=== PATIENT | male | born 1950 | race African-American/Black ===

== ENCOUNTER 2016-09-02 00:09 | Emergency (ER) | payer SELFPAY ==
--- NOTE | 2016-09-02 04:43 | ER Document Report ---
HPI - HPI Patient complains to provider of: numbness Pain Level: Denies Context: Patient is a 65 year old male that comes to the ED for chief complaint of having to strain on the toilet, he states he is staying longer on the toilet and he noticed that his left leg was going numb with the time he spent on the toilet. He states that since he gets off the toilethe walks off the numbness and he returns to normal functioning. He denies abdominal pain. He denies fever. He denies nausea or vomiting. He denies any daily medications or no medical history. He denies any surgeries. He does not have a primary care provider. He is new to the area but he states he is interested in getting a primary care provider locally. Past Medical History - General Information source: Patient - Social History Smoking Status: Never Smoker Drug Abuse: None Lives with: Family Family History: Reviewed & Not Pertinent - Medical History Medical History: Negative Renal/ Medical History: Denies: Hx Peritoneal Dialysis Surgical Hx: Negative Vertical Provider Document - CONSTITUTIONAL General Appearance: WD/WN, No Apparent Distress - INFECTION CONTROL TRAVEL OUTSIDE OF THE [place] IN LAST 30 DAYS: No - HEENT HEENT: Atraumatic, Normal ENT Exam, Normocephalic - NECK Neck: Normal Inspection - RESPIRATORY Respiratory: Breath Sounds Normal, No Respiratory Distress O2 Sat by Pulse Oximetry: 96 - CARDIOVASCULAR Cardiovascular: Regular Rate, Regular Rhythm - GI/ABDOMEN Gastrointestinal: Abdomen Non-Tender - Abdomen is nontender, however there is an umbilical hernia noted on examination, I was able to reduce this without any difficulty on examination. - BACK Back: Normal Inspection - Normal midline exam, no saddle anesthesia, normal upper and lower extremity strength and range of motion, normal distal neurovascular exam - MUSCULOSKELETAL/EXTREMETIES Musculoskeletal/Extremeties: MAEW, FROM, Non-Tender - NEURO Level of Consciousness: Awake, Alert Course - Re-evaluation Re-evalutation: Patient was noted to have an umbilical hernia, this is easily reduced. Patient currently asymptomatic. No concerning symptoms reported other than straining on the toilet, patient will be provided with a stool softener, referral to both primary care and surgery, discussed return precautions in detail, patient states gratefulness for care and understanding. - Vital Signs Vital signs: Temp Pulse Resp BP Pulse Ox 98.4 F 82 18 166/85 H 96 09/02/16 00:20 09/02/16 00:20 09/02/16 00:20 09/02/16 00:20 09/02/16 00:20 Discharge - Discharge Clinical Impression: Straining during bowel movements Abdominal hernia Qualifiers: Hernia type: umbilical Obstruction and gangrene presence: without obstruction or gangrene Qualified Code(s): K42.9 - Umbilical hernia without obstruction or gangrene Condition: Stable Disposition: HOME, SELF-CARE Additional Instructions: Your examination is consistent with an umbilical hernia. Please follow-up with both primary care and the surgical clinic referrals, this will likely need to be repaired. Take the stool softener to avoid straining during bowel movement. Take for the next several days, increase fiber in your diet. Return to emergency department for any concerning or worsening symptoms including abdominal pain, vomiting, or any other concerning symptoms. Prescriptions: Docusate Sodium [Colace 100 mg Capsule] 100 mg PO DAILY #30 capsule Forms: Elevated Blood Pressure Referrals: STEVEN HYDE MD [ACTIVE STAFF] - Follow up as needed [facility] [Provider Group] - Follow up in 3-5 days MING GOEL MD [ACTIVE STAFF] - Follow up in 3-5 days
[2016-09-02 05:02] VITALS: BP 155/95
== END 2016-09-02 04:59 | disposition home or self-care (01) ==
LOC: ER 00:09
DX: R19.4 Change in bowel habit (principal); K42.9 Umbilical hernia without obstruction or gangrene; R20.0 Anesthesia of skin
CPT/HCPCS: 99283

== ENCOUNTER 2018-03-21 10:32 | Emergency (ER) | payer BC, MEDICARE ==
[2018-03-21] MEDS ORDERED: NORMAL SALINE 1000 ML 1,000 ML IV ONE (10:51)
[2018-03-21] MEDS ORDERED: ACETAMINOPHEN 325 MG TABLET PO ONE (10:51)
[2018-03-21] MEDS ORDERED: CEFTRIAXONE 1 GM/D5W RTU 1 GM/50 ML RTUPB IV ONE (10:51)
--- NOTE | 2018-03-21 10:53 | ER Document Report ---
ED Medical Screen (RME) - General Chief Complaint: Pain All Over Stated Complaint: BODY ACHES Time Seen by Provider: 03/21/18 10:45 TRAVEL OUTSIDE OF THE [place] IN LAST 30 DAYS: No - Related Data Allergies/Adverse Reactions: Penicillins Allergy (Verified 03/21/18 10:32) Past Medical History - Social History Frequency of alcohol use: Rare Drug Abuse: None Renal/ Medical History: Denies: Hx Peritoneal Dialysis GI Medical History: Reports: Hx Gastroesophageal Reflux Disease Physical Exam - Vital signs Vitals: Temp Pulse Resp BP Pulse Ox 102.8 F H 125 H 26 H 148/78 H 95 03/21/18 10:39 03/21/18 10:39 03/21/18 10:39 03/21/18 10:39 03/21/18 10:39 Course - Re-evaluation Re-evalutation: 03/21/18 10:53 67-year-old man with no known medical problems that presents for evaluation of fever, tachycardia, cough, and weakness. I have seen and evaluated this patient in rapid medical screening exam, there will require reexamination and further assessment with possible diagnostics and disposition determination by secondary provider. - Vital Signs Vital signs: Temp Pulse Resp BP Pulse Ox 102.8 F H 125 H 26 H 148/78 H 95 03/21/18 10:39 03/21/18 10:39 03/21/18 10:39 03/21/18 10:39 03/21/18 10:39
--- NOTE | 2018-03-21 11:00 | ER Document Report ---
ED General - General Chief Complaint: Pain All Over Stated Complaint: BODY ACHES Time Seen by Provider: 03/21/18 10:45 Notes: Patient is a 67-year-old male that presents to the emergency department for chief complaint of cough and shortness of breath. Reports that his symptoms started yesterday, with cough nonproductive, he states his daughter was diagnosed with influenza in [place], and he started having similar symptoms of generalized body aches and weakness, along with fevers and chills. He denies having any associated chest pain, nausea, vomiting or abdominal pain. He describes his body pain is aches all over, not focal. Denies having any neck stiffness, or back pain or confusion. Past Medical History: Hypertension Past Surgical History: Denies surgical history Social History: Denies tobacco, alcohol or drug use. Family History: Reviewed and noncontributory for presenting illness Allergies: Reviewed, see documented allergy list. REVIEW OF SYSTEMS: Other than noted above, the 12 point review of systems was reviewed with the patient and were negative, all pertinent findings are included in the HPI. PHYSICAL EXAMINATION: Vital signs reviewed, nursing noted reviewed. GENERAL: Elderly male, appears uncomfortable, slight increased work of breathing HEAD: Atraumatic, normocephalic. EYES: Eyes appear normal, extraocular movements intact, sclera anicteric, conjunctiva are normal. ENT: nares patent, oropharynx clear without exudates. Moist mucous membranes. NECK: Normal range of motion, supple without lymphadenopathy LUNGS: Mild increased work of breathing, but lungs are clear otherwise breath sounds clear to auscultation bilaterally and equal. No wheezes rales or rhonchi. HEART: Heart rate tachycardic, regular rhythm, no audible murmurs. ABDOMEN: Soft, nontender, normoactive bowel sounds. No rebound, guarding, or rigidity. No masses appreciated. EXTREMITIES: Nontender, good range of motion, no pitting or edema. NEUROLOGICAL: No focal neurological deficits. Moves all extremities spontaneou sly Motor and sensory grossly intact on exam. PSYCH: Normal mood, normal affect. SKIN: Warm, Dry, normal turgor, no rashes or lesions noted on exposed skin TRAVEL OUTSIDE OF THE [place] IN LAST 30 DAYS: No - Related Data Allergies/Adverse Reactions: Penicillins Allergy (Verified 03/21/18 10:32) Past Medical History - Social History Smoking Status: Never Smoker Frequency of alcohol use: Rare Drug Abuse: None Family History: Reviewed & Not Pertinent Patient has suicidal ideation: No Patient has homicidal ideation: No Renal/ Medical History: Denies: Hx Peritoneal Dialysis GI Medical History: Reports: Hx Gastroesophageal Reflux Disease Physical Exam - Vital signs Vitals: Temp Pulse Resp BP Pulse Ox 102.8 F H 125 H 26 H 148/78 H 95 03/21/18 10:39 03/21/18 10:39 03/21/18 10:39 03/21/18 10:39 03/21/18 10:39 Course - Re-evaluation Re-evalutation: Patient seen and examined vital signs reviewed. Laboratory data and imaging were ordered as appropriate for the patient's presenting symptoms and complaint, with consideration of any critical or life threatening conditions that may be associated with their obtained history and exam as noted above. Patient was treated with IV fluid, and IV Rocephin was ordered by the triage provider, he was also given Tylenol for his fever. Results were reviewed when available and demonstrated very mild leukocytosis, chest x-ray is negative for acute infiltrate, patient did meet Sirs criteria, however do not feel that he has an acute bacterial infection, and is actually experiencing influenza, with a recent exposure, fever, and absence of focal infiltrate, will start him on Tamiflu as he is in the 48-hour treatment window, and is over 65. The patient was re-evaluated and was improved, he felt comfortable being discharged home, his heart rate had come down, his pulse ox remained above 92% on room air, and his fever was coming down. Evaluation was most consistent with influenza, possible early pneumonia, therefore we will treat with home Omnicef, azithromycin, and Tamiflu prescription, advised to follow-up with his primary care physician, or return to the ED if his symptoms worsened in any way. Results were discussed with the patient at this point, after careful cons ideration I feel that that patient can be discharged from the emergency department, the patient was educated treatments and reasons to return to the emergency department based on their presumed diagnosis as noted above, they were advised to followup with a primary care physician in 2-3 days. Patient was agreeable to plan of care. *Note is created using voice recognition software and may contain spelling, syntax or grammatical errors. Laboratory 03/21/18 03/21/18 03/21/18 11:07 11:07 11:07 WBC 10.6 H RBC 4.43 Hgb 13.3 L Hct 39.7 MCV 90 MCH 30.0 MCHC 33.5 RDW 13.7 Plt Count 250 Seg Neutrophils % 77.9 Lymphocytes % 10.2 L Monocytes % 11.4 Eosinophils % 0.1 Basophils % 0.4 Absolute Neutrophils 8.2 Absolute Lymphocytes 1.1 Absolute Monocytes 1.2 Absolute Eosinophils 0.0 Absolute Basophils 0.0 PT 14.7 INR 1.09 Sodium 137.3 Potassium 4.3 Chloride 97 L Carbon Dioxide 28 Anion Gap 12 BUN 16 Creatinine 1.31 H Est GFR ( Amer) > 60 Est GFR (Non-Af Amer) 55 L Glucose 119 H Lactic Acid Calcium 10.1 Total Bilirubin 0.9 Direct Bilirubin 0.3 Neonat Total Bilirubin Not Reportable Neonat Direct Bilirubin Not Reportable Neonat Indirect Bili Not Reportable AST 181 H ALT 47 Alkaline Phosphatase 134 H Troponin I Total Protein 8.3 H Albumin 4.4 Influenza A (Rapid) Influenza B (Rapid) 03/21/18 03/21/18 03/21/18 11:07 11:07 11:07 WBC RBC Hgb Hct MCV MCH MCHC RDW Plt Count Seg Neutrophils % Lymphocytes % Monocytes % Eosinophils % Basophils % Absolute Neutrophils Absolute Lymphocytes Absolute Monocytes Absolute Eosinophils Absolute Basophils PT INR Sodium Potassium Chloride Carbon Dioxide Anion Gap BUN Creatinine Est GFR ( Amer) Est GFR (Non-Af Amer) Glucose Lactic Acid 2.0 Calcium Total Bilirubin Direct Bilirubin Neonat Total Bilirubin Neonat Direct Bilirubin Neonat Indirect Bili AST ALT Alkaline Phosphatase Troponin I < 0.012 Total Protein Albumin Influenza A (Rapid) NEGATIVE Influenza B (Rapid) NEGATIVE Chest X-Ray 03/21/18 10:51 IMPRESSION: CARDIAC ENLARGEMENT WITHOUT FAILURE. - Vital Signs Vital signs: Temp Pulse Resp BP Pulse Ox 99.2 F 125 H 19 150/86 H 93 03/21/18 13:43 03/21/18 10:39 03/21/18 13:00 03/21/18 11:12 03/21/18 13:00 - Laboratory Result Diagrams: 03/21/18 11:07 03/21/18 11:07 Laboratory results interpreted by me: 03/21/18 03/21/18 03/21/18 11:07 11:07 13:34 WBC 10.6 H Hgb 13.3 L Lymphocytes % 10.2 L Chloride 97 L Creatinine 1.31 H Est GFR (Non-Af Amer) 55 L Glucose 119 H AST 181 H Alkaline Phosphatase 134 H Total Protein 8.3 H Urine Protein 30 H Urine Blood LARGE H - EKG Interpretation by Me Additional EKG results interpreted by me: EKG demonstrates sinus tachycardia with a ventricular rate of 122 bpm, normal axis, normal intervals, no evidence of acute ischemia on this EKG. No prior for comparison. Discharge - Discharge Clinical Impression: Influenza Leukocytosis Qualifiers: Leukocytosis type: unspecified Qualified Code(s): D72.829 - Elevated white blood cell count, unspecified Pneumonia Qualifiers: Pneumonia type: due to unspecified organism Laterality: unspecified laterality Lung location: unspecified part of lung Qualified Code(s): J18.9 - Pneumonia, unspecified organism Hematuria Qualifiers: Hematuria type: unspecified type Qualified Code(s): R31.9 - Hematuria, unspecified Condition: Stable Disposition: HOME, SELF-CARE Instructions: Influenza ([facility]) Additional Instructions: Please return to the emergency department if you have any worsening, or concern of your symptoms. Please return to the emergency department if you develop chest pain, difficulty breathing, severe abdominal pain, or ongoing vomiting. Please follow-up with your primary care physician in 2-3 days and any other recommended physicians. If prescribed, take all medications as directed. If you have any questions or concerns do not hesitate to return the emergency department for evaluation. Please take all medications as prescribed, including the Tamiflu as directed. Please take 1000mg (2 Extra strength tylenol) every 8 hours for fever control. Incidentally there was also some blood noted in the urine, this simply needs follow-up with Dr. López, to have repeat urine testing in the future. Prescriptions: Azithromycin [Zithromax 250 mg Tablet] 250 mg PO ASDIR #6 tablet Cefdinir 300 mg PO BID #14 capsule Oseltamivir Phosphate [Tamiflu 75 mg Capsule] 75 mg PO BID #10 capsule Referrals: JENNIFER LÓPEZ DO [Primary Care Provider] - Follow up in 3-5 days
[2018-03-21 11:46] LABS: ABSOLUTE LYMPHOCYTES (AUTO) 1.1 10^3/uL (0.5-4.7); ABSOLUTE MONOCYTES (AUTO) 1.2 10^3/uL (0.1-1.4); ABSOLUTE NEUT (AUTO) 8.2 10^3/uL (1.7-8.2); BASOPHILS % (AUTO) 0.4 % (0-2); EOSINOPHILS % (AUTO) 0.1 % (0-6); HEMATOCRIT 39.7 % (37.9-51.0); HEMOGLOBIN 13.3 g/dL (13.5-17.0); LYMPHOCYTES % (AUTO) 10.2 % (13-45); MEAN CORPUSCULAR HGB CONC 33.5 g/dL (32.0-36.0); MEAN CORPUSCULAR VOLUME 90 fl (80-97); MONOCYTES % (AUTO) 11.4 % (3-13); PLATELET COUNT 250 10^3/uL (150-450); RED BLOOD COUNT 4.43 10^6/uL (4.35-5.55); RED CELL DISTRIBUTION WIDTH 13.7 % (11.5-14.0); SEGMENTED NEUTROPHILS % (AUTO) 77.9 % (42-78); TOTAL CELLS COUNTED % (AUTO) 100 %; WHITE BLOOD COUNT 10.6 10^3/uL (4.0-10.5)
[2018-03-21 11:52] LABS: INTERNATIONAL RATION (INR) 1.09; PROTHROMBIN TIME 14.7 SEC (11.4-15.4)
[2018-03-21 12:00] LABS: ALANINE AMINOTRANSFERASE 47 U/L (21-72); ALBUMIN 4.4 g/dL (3.5-5.0); ALKALINE PHOSPHATASE 134 U/L (38-126); ANION GAP 12 (5-19); ASPARTATE AMINO TRANSFERASE 181 U/L (17-59); BILIRUBIN,DIRECT 0.3 mg/dL (0.0-0.4); BILIRUBIN,TOTAL 0.9 mg/dL (0.2-1.3); BLOOD UREA NITROGEN 16 mg/dL (7-20); CALCIUM 10.1 mg/dL (8.4-10.2); CARBON DIOXIDE 28 mmol/L (22-30); CHLORIDE 97 mmol/L (98-107); GLUCOSE 119 mg/dL (75-110); POTASSIUM 4.3 mmol/L (3.6-5.0); SODIUM 137.3 mmol/L (137-145); TOTAL PROTEIN 8.3 g/dL (6.3-8.2)
[2018-03-21 12:05] LABS: A TYPE INFLUENZA AG NEGATIVE (NEGATIVE); B INFLUENZA AG NEGATIVE (NEGATIVE)
--- NOTE | 2018-03-21 12:34 | RADIOLOGY REPORT (SQ) ---
EXAM DESCRIPTION: CHEST 2 VIEWS COMPLETED DATE/TIME: 03/21/2018 12:18 pm REASON FOR STUDY: concern for pneumonia COMPARISON: None. NUMBER OF VIEWS: Two view. TECHNIQUE: Frontal and lateral radiographic views of the chest acquired. LIMITATIONS: None. FINDINGS: LUNGS AND PLEURA: No opacities, masses or pneumothorax. No pleural effusion. MEDIASTINUM AND HILAR STRUCTURES: No masses. No contour abnormalities. HEART AND VASCULAR STRUCTURES: Heart enlarged without failure. Aorta normal for age. BONES: No acute findings. HARDWARE: None in the chest. OTHER: No other significant finding. IMPRESSION: CARDIAC ENLARGEMENT WITHOUT FAILURE. TECHNICAL DOCUMENTATION: JOB ID: [id number]- All Rights Reserved Reading location - IP/workstation name: [email or web address]
--- NOTE | 2018-03-21 12:43 | EKG REPORT ---
SEVERITY:- BORDERLINE ECG - SINUS TACHYCARDIA PROBABLE LEFT ATRIAL ABNORMALITY BORDERLINE T ABNORMALITIES, INFERIOR LEADS : Confirmed by: Audra Sow MD 21-Mar-2018 12:43:27
[2018-03-21] MEDS ORDERED: OSELTAMIVIR PHOSPHATE 75 MG CAPSULE PO ONE (13:46)
[2018-03-21 14:12] LABS: APPEARANCE,URINE SLIGHTLY-CLOUDY; BILIRUBIN,URINE NEGATIVE (NEGATIVE); COLOR,URINE YELLOW; GLUCOSE, URINE NEGATIVE (NEGATIVE); KETONES,URINE NEGATIVE (NEGATIVE); LEUKOCYTE ESTERASE,URINE NEGATIVE (NEGATIVE); NITRITE,URINE NEGATIVE (NEGATIVE); PROTEIN,URINE 30 mg/dL (NEGATIVE); URINE SPECIFIC GRAVITY 1.009; UROBILINOGEN,URINE NEGATIVE mg/dL (<2.0)
[2018-03-21 14:41] VITALS: BP 142/78
== END 2018-03-21 14:41 | disposition home or self-care (01) ==
LOC: ER 10:32
DX: J11.1 Influenza due to unidentified influenza virus with other respiratory manifestations (principal); D72.829 Elevated white blood cell count, unspecified; J18.9 Pneumonia, unspecified organism; R31.9 Hematuria, unspecified; M79.10 Myalgia, unspecified site; R05 Cough; R06.02 Shortness of breath; I10 Essential (primary) hypertension
CPT/HCPCS: 93005; 99284; 96365; 36415; 87040; 87086; 85025; 85610; 80053; 81001; 84484; 83605; 87804; 71046; 93010; A9270 ×2; J7030; J0696; J3490

== ENCOUNTER 2018-11-25 08:19 | Day surgery (SDC) | payer MEDICARE ==
[~2018-11-25 08:19] MED LIST: PROPOFOL INJ 200 MG/20 ML VIAL IV ONE
[2018-11-25 10:15] VITALS: BP 125/67
--- NOTE | 2018-11-25 12:02 | Operative Report ---
Operative Report DATE OF SURGERY: 11/25/18 Operative Report: The risks, benefits and alternatives of the procedure including the risk of bleeding, perforation requiring surgery have been explained to the patient in detail and informed consent has been obtained. The patient is taken back to the endoscopy suite and placed in the left, lateral decubital position. Timeout was called. Propofol medication is administered. Rectal examination is done which did not reveal any masses, tears or fissures. An Olympus videoscope was introduced into the patient's rectum. Scope was then carefully advanced all the way to the cecum. Cecum was identified by the usual anatomical landmarks including the ileocecal valve as well as the appendiceal office. Photodocumentation is obtained. Scope was then sequentially pulled back via the rest segments of the colon including the ascending colon, hepatic flexure, transverse colon, splenic flexure, descending colon and finally into the rectosigmoid portions of the colon. Retroflexion maneuvers performed. The risks benefits and alternatives of the procedure explained to the patient in detail and informed consent is obtained .A GIF Olympus video scope was inserted into the patient's mouth and hypopharynx, the esophagus is identified intubated and insufflated, the scope was then advanced through the esophagus stomach and duodenum ,retroflexion maneuver is done, the esophagus stomach and first and second portions of the duodenum examined. PREOPERATIVE DIAGNOSIS: Personal history of polyps. Gastroesophageal reflux disease POSTOPERATIVE DIAGNOSIS: Multiple colon polyps throughout all of which are removed via snare polypectomy and retrieved. Extended procedure time. Nodular gastritis status post biopsy rule out Helicobacter pylori OPERATION: Colonoscopy with snare polypectomy. EGD with biopsy SURGEON: PRACHI RIZVI ANESTHESIA: LMAC TISSUE REMOVED OR ALTERED: As noted above. COMPLICATIONS: None. ESTIMATED BLOOD LOSS: None. INTRAOPERATIVE FINDINGS: As noted above. PROCEDURE: Patient tolerated the procedure well. No immediate postprocedure complications are noted. Patient is discharged in good condition. Discharge date 11/25/2018. Discharge diet: Regular. Discharge activity: Regular. 2 to 3-week follow-up to discuss findings. Patient is instructed to call the office or proceed to the emergency room should there be any further problems or questions. Wait on the pathology. Because of the number of polyps he will need a surveillance colonoscopy in 6 months.
== END 2018-11-25 10:17 | disposition home or self-care (01) ==
LOC: END 08:19
PROVIDERS: ATTEND Internal Medicine Gastroenterology
DX: Z12.11 Encounter for screening for malignant neoplasm of colon (principal); K29.50 Unspecified chronic gastritis without bleeding; D12.0 Benign neoplasm of cecum; D12.2 Benign neoplasm of ascending colon; D12.3 Benign neoplasm of transverse colon; D12.4 Benign neoplasm of descending colon; D12.7 Benign neoplasm of rectosigmoid junction; Z86.010 Personal history of colon polyps; K21.9 Gastro-esophageal reflux disease without esophagitis; E78.2 Mixed hyperlipidemia; I10 Essential (primary) hypertension; Z88.0 Allergy status to penicillin
CPT/HCPCS: 43239; 45385; 88305 ×2; 00813; J2704; 813